=== PATIENT | male | born 1960 | race Two or more races ===

== ENCOUNTER 2025-04-01 10:22 | Inpatient (IN) | payer MEDICARE, MEDICAID ==
[~2025-04-01] VITALS: Ht 177.8 cm; Wt 96.0 kg
--- NOTE | 2025-04-01 10:37 | ED.PDOC ---
HPI (NEURO) HPI Comments This is a 64 year old male presenting to the ED with chief complaint of dizziness. Patient reports that he has been experiencing dizziness with associated nausea and imbalance since yesterday after having an echocardiogram and carotid US performed at his doctor's office. Patient relays that he currently has prostate cancer. Patient denies any SOB, chest pain, abdominal pain, vomiting, headache, or blurred vision. Time Seen by MD: 10:32 Primary Care Provider: WILBUR Tobin Notes: Nurses Notes, Medications, Allergies Information Source: Patient, Relative (Son) Mode of Arrival: Wheelchair Severity: Moderate Dizziness/Weakness Severity: Unable to do activities Timing: Days Duration: Since onset Prehospital treatment: None Onset: At rest Circumstances: Spontaneous Symptoms: Vertigo, Imbalance History of: CVA Past Medical History PAST MEDICAL HISTORY: Cancer (Prostate), CVA, DM, High Lipids, HTN, Thyroid Surgical History: Denies all surgeries Family History Family History: Reviewed,noncontributory to illness Social History Smoker: Non-Smoker Alcohol: Occasionally Drugs: Denies Drug Use Lives In: Home Constitutional: denies: chills, diaphoresis, fatigue, fever, malaise, sweats, weakness, others EENTM: denies: blurred vision, double vision, ear bleeding, ear discharge, ear drainage, ear pain, ear ringing, eye pain, eye redness, hearing loss, mouth pain, mouth swelling, nasal discharge, nose bleeding, nose congestion, nose pain , photophobia, tearing, throat pain, throat swelling, voice changes, others Respiratory: denies: cough, hemoptysis, orthopnea, SOB at rest, shortness of breath, SOB with excertion, stridor, wheezing, others Cardiovascular: denies: chest pain, dizzy spells, diaphoresis, Dyspnea on exertion, edema, irregular heart beat, left arm pain, lightheadedness, palpitations, PND, syncope, others Gastrointestinal: reports: nausea; denies: abdomen distended, abdominal pain, blood streaked bowels, constipated, diarrhea, dysphagia, difficulty swallowing, hematemesis, melena, poor appetite, poor fluid intake, rectal bleeding, rectal pain, vomiting, others Genitourinary: denies: burning, dysuria, flank pain, frequency, hematuria, incontinence, penile discharge, penile sore, pain, testicle pain, testicle swelling, urgency, others Neurological: reports: dizziness; denies: fainting, headache, left sided numbness, left sided weakness, numbness, paresthesia, pre-existing deficit, right sided numbness, right sided weakness, seizure, speech problems, tingling, tremors, weakness, others Musculoskeletal: denies: back pain, gout, joint pain, joint swelling, muscle pain, muscle stiffness, neck pain, others Integumetry: denies: bruises, change in color, change in hair/nails, dryness, laceration, lesions, lumps, rash, wounds, others Allergic/Immunocompromised: denies: Difficulty Healing, Frequent Infections, Hives, Itching, others Hematologic/Lymphatic: denies: anemia, blood clots, easy bleeding, easy bruising, swollen glands, others Endocrine: denies: excessive hunger, excessive sweating, excessive thirst, excessive urination, flushing, intolerance to cold, intolerance to heat, unexplained weight gain, unexplained weight loss, others Psychiatric: denies: anxiety, bipolar disorder, depression, hopeless, panic disorder, schizophrenia, sleepless, suicidal, others All Other Systems: Reviewed and Negative Physical Exam General Appearance: Moderate Distress HEENT: Normal ENT Inspection, Pharynx Normal, TMs Normal Neck: Full Range of Motion, Non-Tender, Normal, Normal Inspection Respiratory: Chest Non-Tender, Lungs Clear, No Accessory Muscle Use, No Res piratory Distress, Normal Breath Sounds Cardiovascular: No Edema, No JVD, No Murmur, No Gallop, Normal Peripheral Pulses, Regular Rate/Rhythm Breast Exam: Deferred Gastrointestinal: No Organomegaly, Non Tender, No Pulsatile Mass, Normal Bowel Sounds, Soft Genitalia: Deferred Pelvic: Deferred Rectal: Deferred Extremities: No calf tenderness, Normal capillary refill, Normal inspection, Normal range of motion, Non-tender, No pedal edema Musculoskeletal : Apperance: Normal Neurologic: sales strategy manager II-XII nml as Tested, Motor Weakness, Normal Affect, Normal Mood, No Sensory Deficits Cerebellar Function: Normal Reflexes: Normal Skin: Dry, Pallor, Warm Lymphatic: No Adenopathy EKG EKG : Pulse Rate (adult): 68 [place]: Normal Block: None Hypertrophy: None ST: Normal Was a procedure done? Was a procedure done?: No X-Ray, Labs, Meds, VS Vital Signs Date Time Temp Pulse Resp B/P (MAP) Pulse Ox O2 Delivery O2 Flow Rate FiO2 04/01/25 10:42 68 04/01/25 10:37 68 04/01/25 10:34 97.9 76 20 138/87 (104) 92 97.9 Lab Test 04/01/25 10:40 04/01/25 10:32 Range/Units White Blood Count 3.7 L 4.4-10.8 10^3/uL Red Blood Count 5.40 4.5-5.90 10^6/uL Hemoglobin 16.3 13.5-17.5 g/dL Hematocrit 47.9 41.0-53.0 % Mean Corpuscular Volume 88.8 80.0-100.0 fL Mean Corpuscular Hemoglobin 30.2 28.0-32.0 pg Mean Corpuscular Hemoglobin Concent 34.0 32.0-36.0 g/dL Red Cell Distribution Width 13.5 11.8-14.3 % Platelet Count 186 140-450 10^3/uL Mean Platelet Volume 8.9 6.9-10.8 fL Neutrophils (%) (Auto) 57.0 37.0-80.0 % Lymphocytes (%) (Auto) 34.8 10.0-50.0 % Monocytes (%) (Auto) 5.5 0.0-12.0 % Eosinophils (%) (Auto) 1.9 0.0-7.0 % Basophils (%) (Auto) 0.8 0.0-2.0 % Neutrophils # (Auto) 2.1 1.6-8.6 10 ^3/uL Lymphocytes # (Auto) 1.3 0.4-5.4 10 ^3/uL Monocytes # (Auto) 0.2 0-1.3 10 ^3/uL Eosinophils # (Auto) 0.1 0-0.8 10 ^3/uL Basophils # (Auto) 0 0-0.2 10 ^3/uL Nucleated Red Blood Cells 0.0 % Sodium Level 142 136-145 mmol/L Potassium Level 4.1 3.5-5.1 mmol/L Chloride Level 109 H 98-107 mmol/L Carbon Dioxide Level 26 20-31 mmol/L Anion Gap 7 5-15 Blood Urea Nitrogen 10 9-23 mg/dL Creatinine 0.96 0.700-1.30 mg/dL Glomerular Filtration Rate Calc 88 >90 mL/min BUN/Creatinine Ratio 10.4 10.0-20.0 Serum Glucose 110 H 74-106 mg/dL Lactic Acid Level 1.4 0.4-2.0 mmol/L Calcium Level 10.3 8.7-10.4 mg/dL POC Glucose 100 70-106 mg/dl Current Medications Medications (Trade) Dose Ordered Sig/Galo Route Start Time Stop Time Status Last Admin Sodium Chloride 1,000 ml @ 150 mls/hr Q6H40M ONCE IV 04/01/25 10:45 04/01/25 17:24 04/01/25 11:27 IV Hep-Lock was established The patient is being given normal saline as a bolus The patient's CBC and chemistry panel are within normal limits The patient had a CAT scan of the head done which shows: No sign of any abnormalities The lactic acid level is within normal limits The patient continues to be symptomatic The patient is being admitted at this time Images Reviewed?: Images reviewed and evaluated by me Time of 1ST Reevaluation: 11:52 Reevaluation 1ST: Unchanged Patient Education/Counseling: Diagnosis, Treatment, Prognosis Family Education/Counseling: Diagnosis, Treatment, Prognosis Additional Information Reviewed patient's previous visit(s): 05/21/13 for weakness The following tests were ordered, and results were reviewed by me: CBC, BMP, UA, Lactic acid, Blood culture, COVID, CT Head, EKG Additional information was gathered from interviewing the following independent historian: Son I reviewed and agreed with the following test results read by other provider: None I discussed treatments and results with medical personnel and: PATIENT and son Comprehensive systems review obtained and negative except for what is stated in the HPI. Departure 1 Departure Time of Disposition: 11:52 Impression: Primary Impression: Generalized weakness Additional Impression: Autonomic dysfunction Disposition: 09 ADMITTED INPATIENT Admit to: Tele Condition: Fair Critical Care Note Critical Care Time?: Yes (55 min-critical care time only) Stability Stability form required: Yes Unstable for transfer: Telemetry monitoring (Telemetry monitoring required), ED Physician Assesment (Clinical assesment) Heart Score Heart Score: Heart Score Response (Comments) Value History N/A 0 EKG N/A 0 Age N/A 0 Risk Factors N/A 0 Troponin N/A 0 Total 0 I personally scribed for SAV MEZA MD ([email or web address]) on 04/01/25 at 10:37. Electronically submitted by Braden Samayoa ([email or web address]). I personally scribed for SAV MEZA MD ([email or web address]) on 04/01/25 at 10:42. Electronically submitted by Braden Samayoa ([email or web address]). SAV MEZA MD Apr 01, 2025 10:37
[2025-04-01 10:59] LABS: Basophils # (auto) 0 10 ^3/uL (0-0.2); Basophils % (auto) 0.8 % (0.0-2.0); Eosinophils # (auto) 0.1 10 ^3/uL (0-0.8); Eosinophils % (auto) 1.9 % (0.0-7.0); Hematocrit 47.9 % (41.0-53.0); Hemoglobin 16.3 g/dL (13.5-17.5); Lymphocytes # (auto) 1.3 10 ^3/uL (0.4-5.4); Lymphocytes % (auto) 34.8 % (10.0-50.0); Mean Corpuscular Hemoglobin 30.2 pg (28.0-32.0); Mean Corpuscular Volume 88.8 fL (80.0-100.0); Monocytes # (auto) 0.2 10 ^3/uL (0-1.3); Monocytes % (auto) 5.5 % (0.0-12.0); Neutrophils # (auto) 2.1 10 ^3/uL (1.6-8.6); Platelet Count (auto) 186 10^3/uL (140-450); Red Cell Distribution Width 13.5 % (11.8-14.3); White Blood Cell 3.7 10^3/uL (4.4-10.8)
[2025-04-01 11:08] LABS: Potassium 4.1 mmol/L (3.5-5.1); Sodium 142 mmol/L (136-145)
[2025-04-01 11:09] LABS: Anion Gap 7 (5-15); Carbon Dioxide 26 mmol/L (20-31)
[2025-04-01 11:10] LABS: Calcium 10.3 mg/dL (8.7-10.4); Chloride 109 mmol/L (98-107)
--- NOTE | 2025-04-01 11:13 | DVH ---
CT HEAD WITHOUT CONTRAST Indication: aloc EXAM DATE: 04/01/2025 10:40 AM COMPARISON: None TECHNIQUE: CT of the head without intravenous contrast. RADIATION DOSE: CTDIvol: 62.82 mGy, DLP: 1237.85 mGy*cm FINDINGS: There is no intracranial hemorrhage. There is no extra-axial fluid, mass, mass effect or midline shif t. The ventricles are midline and normal in size. Basilar cisterns are patent. There are mild periven tricular and subcortical white matter chronic microvascular ischemic changes. Mastoids well pneumatized. Mucosal thickening bilateral maxillary sinuses.. Imaged portion of the orb its are unremarkable. IMPRESSION: No intracranial hemorrhage or mass effect. Mild chronic microvascular ischemic changes.
[2025-04-01 11:15] LABS: BUN/Creatinine Ratio 10.4 (10.0-20.0); Blood Urea Nitrogen 10 mg/dL (9-23)
[2025-04-01 11:16] LABS: Glucose 110 mg/dL (74-106)
[2025-04-01] MEDS: SODIUM CHLORIDE 0.9% 1,000 ML IV ONE (11:27)
--- NOTE | 2025-04-01 13:21 | DVHHP2 ---
History of Present Illness Reason for Visit: Dizziness History of Present Illness 64-year-old male past medical history prostate cancer had treatment in the past CVA diabetes hyperlipidemia hypertension hypothyroid no surgical history chief complaint patient states that he went to to [facility] any had it scheduled carotid ultrasound he stated that the when the carotid ultrasound of the left neck was being completed he was having some dizziness and neck pain and then he started to get up and lose his balance and he started with nausea and vomiting. Patient states he was doing fine until the ultrasound was completed of the left carotid he said he was able to get home but he continued with nausea and vomiting dizziness that brought him in today and he stated it was seen visual changes he states that his gait is unsteady when he is walking so he is currently in his wheelchair he currently denies any chest pain no shortness with the breath when evaluating patient's labs and imaging from the ED normal saline was given CBC was unremarkable CMP unremarkable lactate was 1.[address] scan of the head shows microvascular ischemic changes. With these findings we will admit and ask for Neurology for evaluation Past Medical History See HPI above Past Surgical History See HPI above Family History Reviewed, non-contributory to the management of this case. Past Social History The patient lives at home, denies smoking, alcohol or illicit drugs abuse. Review of Systems Constitutional: No: Fever, Chills, Sweats, Weakness, Malaise, Other Eyes: No: Pain, Vision change, Conjunctivae inflammation, Eyelid inflammation, Other, Redness ENT: No: Ear pain, Ear discharge, Nose pain, Nose discharge, Nose congestion, Mouth pain, Mouth swelling, Throat pain, Throat swelling, Other Respiratory: No: Cough, Dry, Shortness of breath, SOB with excertion, Wheezing, Hemoptysis, Pleuritic Pain, Sputum, Wheezing, Other Cardiovascular: No: Chest Pain, Palpitations, Orthopnea, Paroxysmal Noc. Dyspnea, Edema, Lt Headedness, Other Gastrointestinal: Nausea, Vomiting Genitourinary: No Dysuria, No Frequency, No Incontinence, No Hematuria, No Retention, No Other Musculoskeletal: No: other, neck pain, shoulder pain, arm pain, back pain, hand pain, leg pain, foot pain Skin: No: Rash, Lesions, Jaundice, Bruising, Other Neurological: Weakness, Other (Dizziness) Allergies: Coded Allergies: NO KNOWN ALLERGIES (Unverified , 07/23/10) Exam Vital Signs Vital Signs Date Time Temp Pulse Resp B/P (MAP) Pulse Ox O2 Delivery O2 Flow Rate FiO2 04/01/25 10:42 68 04/01/25 10:34 97.9 20 138/87 (104) 92 97.9 General Appearance: Alert, Oriented X3, Cooperative, No acute distress HEENT: Atraumatic, PERRLA, EOMI, Mucous membr. moist/pink Respiratory: Clear to auscultation, Normal air movement Cardiovascular: Regular rate, Normal S1, Normal S2, No murmurs Abdominal: Normal bowel sounds, Soft, No tenderness, No hepatospenomegaly, No masses Extremities: No clubbing, No cyanosis, No edema, Normal pulses Skin: No rashes, No breakdown, No significant lesion Neuro: Other (Limited exam neuro nonfocal) Psych/Mental Status: Mental status NL, Mood NL Labs/Xrays CT scan of the brain shows microvascular ischemic changes I reviewed labs, imaging CT scan abdomen pelvis, EKG and all diagnostic studies on this patient from ED records and the medical chart Labs Test 04/01/25 10:40 04/01/25 10:32 Range/Units White Blood Count 3.7 L 4.4-10.8 10^3/uL Red Blood Count 5.40 4.5-5.90 10^6/uL Hemoglobin 16.3 13.5-17.5 g/dL Hematocrit 47.9 41.0-53.0 % Mean Corpuscular Volume 88.8 80.0-100.0 fL Mean Corpuscular Hemoglobin 30.2 28.0-32.0 pg Mean Corpuscular Hemoglobin Concent 34.0 32.0-36.0 g/dL Red Cell Distribution Width 13.5 11.8-14.3 % Platelet Count 186 140-450 10^3/uL Mean Platelet Volume 8.9 6.9-10.8 fL Neutrophils (%) (Auto) 57.0 37.0-80.0 % Lymphocytes (%) (Auto) 34.8 10.0-50.0 % Monocytes (%) (Auto) 5.5 0.0-12.0 % Eosinophils (%) (Auto) 1.9 0.0-7.0 % Basophils (%) (Auto) 0.8 0.0-2.0 % Neutrophils # (Auto) 2.1 1.6-8.6 10 ^3/uL Lymphocytes # (Auto) 1.3 0.4-5.4 10 ^3/uL Monocytes # (Auto) 0.2 0-1.3 10 ^3/uL Eosinophils # (Auto) 0.1 0-0.8 10 ^3/uL Basophils # (Auto) 0 0-0.2 10 ^3/uL Nucleated Red Blood Cells 0.0 % Sodium Level 142 136-145 mmol/L Potassium Level 4.1 3.5-5.1 mmol/L Chloride Level 109 H 98-107 mmol/L Carbon Dioxide Level 26 20-31 mmol/L Anion Gap 7 5-15 Blood Urea Nitrogen 10 9-23 mg/dL Creatinine 0.96 0.700-1.30 mg/dL Glomerular Filtration Rate Calc 88 >90 mL/min BUN/Creatinine Ratio 10.4 10.0-20.0 Serum Glucose 110 H 74-106 mg/dL Lactic Acid Level 1.4 0.4-2.0 mmol/L Calcium Level 10.3 8.7-10.4 mg/dL POC Glucose 100 70-106 mg/dl Assessment/Plan Assessment/Plan acute dizziness with gait disturbance ct scan brain shows microvascular ischemic changes ordered Neurology consult Consider MRI of the brain Stroke protocol and precautions PT OT eval and treat npo nursing to do bedside swallow testing if fail order swallow evaluation cont asa atorvastin cont permissive htn can provide hydralazine prn elevated blood pressure ordered neuro checks q4h fall precautions Bedrest ordered Carotid Doppler study ordered Echo fu results cardiac function consider cards if abnormal results chronic problems cva dm ISS hld htn hypothyroidism prostrate cancer fen/ppx npo until pass swallow evaluation hl scd no gi ppx since no hx of gerds or gi bleed dipso plan admit to tele neuro consult Plan discussed with: Patient Date of Service: Apr 01, 2025 Billing Provider: LINCOLN LIM DNP Common Visit Codes: [id number] INP/OBS CARE (HIGH) LINCOLN LIM DNP Apr 01, 2025 13:21
[2025-04-01] MEDS ORDERED: DEXTROSE (50%) 50ML SYRG IV PRN (14:45)
[2025-04-01] MEDS ORDERED: NITROGLYCERIN 0.4 MG SL TAB SL PRN (14:45)
[2025-04-01 15:58] LABS: Urine Bacteria None Seen /hpf (None Seen)
[2025-04-01 16:22] LABS: Urine Blood Negative /uL (Negative); Urine Clarity Clear (Clear); Urine Color Light-Yellow (Yellow); Urine Mucus FEW (None Seen); Urine Protein, UAD Negative (Negative); Urine Specific Gravity 1.022 (1.001-1.035); Urine Squamous Epithelial Cell FEW /hpf (<5); Urine Urobilinogen Normal (Negative); Urine WBC < 1 /HPF (0-3)
[2025-04-01] MEDS ORDERED: ACCU-CHEK COMFORT CURVE STRIP VI SCH (17:00)
[2025-04-01 17:49] VITALS: PULSE 74; RESP 16; O2SAT 32
[2025-04-01] MEDS: ACCU-CHEK COMFORT CURVE STRIP VI SCH (18:00)
[2025-04-01] MEDS: InsuLIN REG 1unit/0.01ml Soln (100units/ml) SC SCH (18:00)
[2025-04-01 18:25] LABS: COVID19 ANTIGEN SOFIA FIA NEGATIVE (NEGATIVE)
[2025-04-01 20:00] VITALS: PULSE 55; PULSE 69; RESP 16; O2SAT 96
[2025-04-01 21:00] VITALS: BP 168/99; PULSE 69; RESP 16; TEMP 98.7; O2SAT 96
[2025-04-01] MEDS: ATORVASTATIN 20 MG TAB PO SCH (21:40)
[2025-04-02] VITALS (8 sets, daily range): BP systolic 117–168; BP diastolic 77–100; PULSE 62–94; RESP 14–20; TEMP 96–98.1; O2SAT 96–99
[2025-04-02] MEDS: hydrALAZINE HCL 20 MG/ML VL IV PRN (02:40)
[2025-04-02] MEDS ORDERED: ATOR-47 PO (09:10)
[2025-04-02] MEDS: ASPirin 81 mg TAB PO SCH (09:12)
--- NOTE | 2025-04-02 11:02 | DVHPN2 ---
Subjective The patient is seen and examined at bedside. No complaint today. Dizziness improved. Reviewed: Care Plan, H&P, Labs, Medications, Previous Orders, Radiology Changes from previous H/P or p: No Changes Eyes: No Pain, No Vision change, No Conjunctivae inflammation, No Eyelid inflammation, No Other, No Redness ENT: No Ear pain, No Ear discharge, No Nose pain, No Nose discharge, No Nose congestion, No Mouth pain, No Mouth swelling, No Throat pain, No Throat swelling, No Other Cardiovascular: No Chest Pain, No Palpitations, No Orthopnea, No Paroxysmal Noc. Dyspnea, No Edema, No Lt Headedness, No Other Respiratory: No Cough, No Dry, No Shortness of breath, No SOB with excertion, No Wheezing, No Hemoptysis, No Pleuritic Pain, No Sputum, No Other Gastrointestinal: Nausea, Vomiting Genitourinary: No Dysuria, No Frequency, No Incontinence, No Hematuria, No Retention, No Other Musculoskeletal: No other, No neck pain, No shoulder pain, No arm pain, No back pain, No hand pain, No leg pain, No foot pain Skin: No Rash, No Lesions, No Jaundice, No Bruising, No Other Objective Vitals Vital Signs Date Time Temp Pulse Resp B/P (MAP) Pulse Ox O2 Delivery O2 Flow Rate FiO2 04/02/25 09:12 97.5 77 19 141/82 (101) 96 97.5 04/02/25 08:00 Nasal Cannula* 2 28 Intake/Output Intake and Output 04/02/25 07:00 Intake Total 540 ml Balance 540 ml Intake Oral 540 ml General Appearance: Alert, Oriented X3, Cooperative, No acute distress HEENT: Atraumatic, PERRLA, EOMI, Mucous membr. moist/pink Neck: Supple Lungs: Clear to auscultation, Normal air movement Cardiovascular: Regular rate, Normal S2, No murmurs, Gallops, Rubs Abdomen: Normal bowel sounds, Soft, No tenderness Neuro: Cranial nerves 3-12 NL Psych/Mental Status: Mental status NL Medications Current Medications Medications Dose Ordered Sig/Galo Route Start Time Stop Time Status Last Admin Dose Admin Atorvastatin Calcium 20 mg HS PO 04/01/25 22:00 04/01/25 21:40 20 MG Aspirin 81 mg DAILY PO 04/02/25 10:00 04/02/25 09:12 81 MG Insulin Human Regular Q6HR SC 04/01/25 18:00 04/02/25 00:34 2 UNITS Dextrose 50 ml UD PRN IV 04/01/25 14:45 Nitroglycerin 0.4 mg Q5MINP PRN SL 04/01/25 14:45 Diagnostic Test (Pha) 1 strip Q6HR 04/01/25 18:00 04/02/25 05:41 1 STRIP Hydralazine HCl 10 mg Q6HP PRN IV 04/01/25 23:15 04/02/25 02:40 10 MG Laboratory Results Laboratory Tests 04/01/25 10:40 Urinalysis Test 04/01/25 15:32 Urine Color Light-yellow (Yellow) Urine Clarity Clear (Clear) Urine pH 6.0 (5.0-9.0) Urine Specific [place] 1.022 (1.001-1.035) Urine Protein Negative (Negative) Urine Ketones Negative (Negative) Urine Blood Negative /uL (Negative) Urine Nitrite Negative (Negative) Urine Bilirubin Negative (Negative) Urine Urobilinogen Normal mg/dL (Negative) Urine Leukocyte Esterase Negative /uL (Negative) Urine RBC 1 /hpf (0 - 3) Urine Microscopic WBC < 1 /HPF (0-3) Urine Squamous Epithelial Cells Few /hpf (<5) Urine Bacteria None seen /hpf (None Seen) Urine Mucus Few (None Seen) Urine Glucose Normal mg/dL (Normal) Microbiology Microbiology Date/Time Source Procedure Growth Status 04/01/25 10:40 Blood Blood Culture - Preliminary NO GROWTH AFTER 24 HOURS OF INCUBATION. Resulted Labs and/or images reviewed: Labs reviewed by me Assessment/Plan Assessment/Plan Acute dizziness with gait disturbance History of cva Diabetes type 2 Hyperlipidemia Hypertension Hypothyroidism Prostrate cancer Continuing current management. Waiting for MRI to be done. Continuing with sliding scale insulin. Continuing hypertensive medication in hyperlipidemia medication. Discharge planning. Encouraged the patient to be out of bed and ambulate with physical therapy. This medical document was created using an electronic medical record system with [employer]rency direct computerized dictation system. Although this document has been carefully reviewed, there may still be some phonetic and typographical errors. These areas are purely typographical due to imperfections of the software programs, and do not reflect any compromise in the patient's medical care. Plan discussed with: Patient Date of Service: Apr 02, 2025 Billing Provider: TRACY VAUGHN MD Common Visit Codes: [id number] INP/OBS CARE(HIGH) TRACY VAUGHN MD Apr 02, 2025 11:02
[2025-04-03] VITALS (8 sets, daily range): BP systolic 120–178; BP diastolic 81–101; PULSE 56–79; RESP 14–19; TEMP 97.8–97.9; O2SAT 95–97
--- NOTE | 2025-04-03 07:16 | BSKYNEURO ---
[facility] Note # Demographics Consult Type: General Neurology Patient Location: Inpatient First Name: Sunny Last Name: Emmanuel Date of : 1960 Age: 64 Gender: Male Facility: [facility] Time of Initial Page (): 04/03/2025 06:47 Time of Return Call (): 04/03/2025 06:47 # HPI Chief Complaint: - dizziness History: 64M with HTN, prior stroke, DM presented with dizziness. Had carotid ultrasound on 04/01, and was subsequently dizzy with nausea/vomiting. Was hypertensive to the 160s, got BP meds and felt better. CT head showed microvascular ischemic changes. Walking without assistance with normal strength. # Scores Time of exam and NIHSS (): 04/03/2025 07:03 Level of Consciousness 1a: [0] = Alert; keenly responsive LOC Questions 1b: [0] = Answers both questions correctly LOC Commands 1c: [0] = Performs both tasks correctly Best Gaze 2: [0] = Normal Visual 3: [0] = No visual loss Facial Palsy 4: [0] = Normal symmetrical movements Motor Arm Left 5a: [0] = No drift Motor Arm Right 5b: [0] = No drift Motor Leg Left 6a: [0] = No drift Motor Leg Right 6b: [0] = No drift Limb Ataxia 7: [0] = Absent Sensory 8: [0] = Normal Best Language 9: [0] = No aphasia Dysarthria 10: [0] = Normal Extinction and Inattention 11: [0] = No abnormality NIHSS Total: 0 # Assessment Impression: Hypertensive urgency # Plan Thrombolytic/Intervention: NOT IV Thrombolysis or IA Intervention candidate Thrombolytic/Intraarterial Exclusion: - IV thrombolytic and IA intervention considered but not recommended as this patient's symptoms are not clinically consistent with an assumed diagnosis of stroke Other: - If patient has any neurological deterioration please call me back immediately Additional Recommendations: Patient with normal neurologic exam, resolution of symptoms with BP control; does not need further in-patient evaluation and is safe for discharge home from neurology perspective Disposition: discharge # Logistics Attestation of consult completion: The patient is located at: [facility]. Facility staff participated in the visit. I performed this telemedic ine visit from my offsite office utilizing interactive 2 way audio and visual telecommunication technology. Consent: Verbal consent was obtained from the patient and/or family for this encounter. Total time spent in telemedicine encounter: I spent 10 minutes reviewing clinical data and/or imaging, obtaining history, examining the patient, communicating with the onsite care team, and in preparation of this report. Electronically signed at 04/03/2025 07:16 ([place] Time) by Richard Roque MD Yes RICHARD ROQUE MD Apr 03, 2025 07:16
--- NOTE | 2025-04-03 15:15 | DVHDS2 ---
Discharge Summary Date of Admission Apr 01, 2025 at 15:39 Date of Discharge: Apr 03, 2025 Admitting Diagnosis Acute dizziness with gait disturbance History of cva Diabetes type 2 Hyperlipidemia Hypertension Hypothyroidism Prostrate cancer Labs/Diagnostic Data: Laboratory Results Test 04/03/25 11:43 04/01/25 17:55 04/01/25 17:00 04/01/25 15:32 POC Glucose 103 mg/dl (70-106) SARS-CoV-2 Antigen (Rapid) Negative (NEGATIVE) Troponin I High Sensitivity 11 ng/L (</=54) Urine Color Light-yellow (Yellow) Urine Clarity Clear (Clear) Urine pH 6.0 (5.0-9.0) Urine Specific [place] 1.022 (1.001-1.035) Urine Protein Negative (Negative) Urine Ketones Negative (Negative) Urine Blood Negative /uL (Negative) Urine Nitrite Negative (Negative) Urine Bilirubin Negative (Negative) Urine Urobilinogen Normal mg/dL (Negative) Urine Leukocyte Esterase Negative /uL (Negative) Urine RBC 1 /hpf (0 - 3) Urine Microscopic WBC < 1 /HPF (0-3) Urine Squamous Epithelial Cells Few /hpf (<5) Urine Bacteria None seen /hpf (None Seen) Urine Mucus Few (None Seen) Urine Glucose Normal mg/dL (Normal) Test 04/01/25 10:40 White Blood Count 3.7 10^3/uL (4.4-10.8) Red Blood Count 5.40 10^6/uL (4.5-5.90) Hemoglobin 16.3 g/dL (13.5-17.5) Hematocrit 47.9 % (41.0-53.0) Mean Corpuscular Volume 88.8 fL (80.0-100.0) Mean Corpuscular Hemoglobin 30.2 pg (28.0-32.0) Mean Corpuscular Hemoglobin Concent 34.0 g/dL (32.0-36.0) Red Cell Distribution Width 13.5 % (11.8-14.3) Platelet Count 186 10^3/uL (140-450) Mean Platelet Volume 8.9 fL (6.9-10.8) Neutrophils (%) (Auto) 57.0 % (37.0-80.0) Lymphocytes (%) (Auto) 34.8 % (10.0-50.0) Monocytes (%) (Auto) 5.5 % (0.0-12.0) Eosinophils (%) (Auto) 1.9 % (0.0-7.0) Basophils (%) (Auto) 0.8 % (0.0-2.0) Neutrophils # (Auto) 2.1 10 ^3/uL (1.6-8.6) Lymphocytes # (Auto) 1.3 10 ^3/uL (0.4-5.4) Monocytes # (Auto) 0.2 10 ^3/uL (0-1.3) Eosinophils # (Auto) 0.1 10 ^3/uL (0-0.8) Basophils # (Auto) 0 10 ^3/uL (0-0.2) Nucleated Red Blood Cells 0.0 % Sodium Level 142 mmol/L (136-145) Potassium Level 4.1 mmol/L (3.5-5.1) Chloride Level 109 mmol/L (98-107) Carbon Dioxide Level 26 mmol/L (20-31) Anion Gap 7 (5-15) Blood Urea Nitrogen 10 mg/dL (9-23) Creatinine 0.96 mg/dL (0.700-1.30) Glomerular Filtration Rate Calc 88 mL/min (>90) BUN/Creatinine Ratio 10.4 (10.0-20.0) Serum Glucose 110 mg/dL (74-106) Lactic Acid Level 1.4 mmol/L (0.4-2.0) Calcium Level 10.3 mg/dL (8.7-10.4) Magnesium Level 2.1 mg/dL (1.6-2.6) Thyroid Stimulating Hormone (TSH) 1.21 uIU/mL (0.55-4.78) Other Laboratory Tests 04/01/25 10:40 Brief Hx & Hospital Course: This is a 64 years old male with past medical history of prostate cancer, CVA, diabetes, hyperlipidemia, hypertension, hypothyroidism come to emergency department because of dizziness. According to the patient he was in hospital in [place]. The patient has a carotid ultrasound done. He think that after the procedure done he become dizzy and had neck pain. He claimed that the ultrasound probe cause that problem. He started having nausea or vomiting. So he decided to come to hospital for further evaluation. CT scan of the head showed microvascular ischemic change. Patient is supposed to have MRI however neurologist evaluated the patient . He showed no symptom of CVA and no need for MRI. Today the patient denied any dizziness. He is able to walk without unstable gait So I am going to discharge the patient home today. Advised the patient to follow up with primary care physician 1-2 weeks. Activity as tolerated. Diet per home diet. Recommend low-salt low-cholesterol carb controlled diet. Physical exam: HEENT: Normocephalic atraumatic pupils equal react to light and accommodation. Extraocular muscles intact, conjunctiva pink, oropharynx moist, no thrush, no exudate. Lymphatic: No lymphadenopathy Cardiovascular exam: S1, S2 was heard. No murmurs, rubs, gallops Lung: Clear on auscultation bilaterally, no wheeze, rale, rhonchi. GI: Abdominal soft, nondistended, nontenderness, positive bowel sounds. Extremity: No crepitus, cyanosis, edema. Pedal pulses present bilateral. Full range of motion. Skin: Normal turgor, no rash. Psych: Alert, oriented x3. Neurology: No focal deficits, cranial nerve II to XII grossly intact. This medical document was created using an electronic medical record system with [employer] direct computerized dictation system. Although this document has been carefully reviewed, there may still be some phonetic and typographical errors. These areas are purely typographical due to imperfections of the software programs, and do not reflect any compromise in the patient's medical care. Condition at Discharge: Stable Final Diagnosis/Problems List Acute dizziness with gait disturbance , ruled out acute CVA History of cva Diabetes type 2 Hyperlipidemia Hypertension Hypothyroidism Prostrate cancer Discharge Disposition: Home Discharge Instruct/Medications Diet: Cardiac 2g Na,low cholest Activity: No Restrictions, As Tolerated Activity comment: WEAR COMPRESSION STOCKS Follow Up/Referral: PCP 1-2 WEEKS Medications: RESUME HOME MEDS Discharge Statement: "Patient was advised to return to the ER or call 911 if any headaches, dizziness, shortness of breath, chest pain, abdominal pain, bleeding, fevers, or worsening of medical condition. Patient was counseled about treatment plan, medications, possible side effects, patientverbalized understanding. All questions were answered to the best of my ability. This discharge took greater then 30 minutes in planning, reviewing documentation, counseling the patient, and discussing with other team members." ASSESSMENT ASSESSMENT Assessment DIZZINESS Date of Service: Apr 03, 2025 Billing Provider: TRACY VAUGHN MD Common Visit Codes: 77261-ERR/OBS DISCH DAY >30min TRACY VAUGHN MD Apr 03, 2025 15:15
--- NOTE | 2025-04-04 01:22 | DVHSR ---
APPROVED REPORT EXAM: Two-dimensional and M-mode echocardiogram with Doppler and color Doppler. Blood Pressure: 124/84 mmHg INDICATION Eval for Caradiac Function RISK FACTORS Height: 5' 10", Weight: 205 DIMENSIONS LVDd5.8 (3.8-5.7cm)LA (2D)3.7 (1.9-4.0cm)Aortic Root (2.0-3.7cm) LVDs4.1 (2.5-4.0cm)LA (MM) (1.9-4.0cm)Aortic Cusp Exc (1.5-2.0cm) EF (%) 55.0 (55-70%)Rt. Atrium3.8 (1.9-4.0cm)Asc. Aorta3.4 cm IVSd1.0 (0.7-1.1cm)RV (D) (1.8-2.4cm) PWd0.9 (0.7-1.1cm) Mitral Valve MitralMitral Stenosis E wave0.58m/sMV Mean GR.mmHg A wave0.98m/sMV Peak GR.mmHg E/A ratio0.62D MVAcm2 DECEL [id number] 1/2 [place] Aortic Valve Aortic ValveAortic Stenosis V10.91m/Rachel Mean GR.3mmHg V21.29m/Rachel Peak GR.7mmHg LVOT Diameter2.1 (1.8-2.4cm)Doppler AVA2.44cm2 Pulmonic Valve V20.93m/s Conclusion NORMAL LV EF AND IS 65% NORMAL RV FUNCTION NORMAL VALVES NO EFFUSION
--- NOTE | 2025-04-05 14:42 | ECG ---
[facility] Test Date: 2025-04-01 Test Time: 10:37:20 Pat Name: TERRY ANDRES Department: ER Room: 0298T Gender: M Applications Engineer: FARZANA : [id number] Requested By: SAV MEZA Order Number: [id number] Reading MD: Measurements Intervals [place] Rate: 68 P: 38 AL: 175 QRS: 10 QRSD: 103 T: 62 QT: 425 QTc: 453 Interpretive Statements Sinus rhythm Low voltage, precordial leads RSR' in V1 or V2, right VCD or RVH Please click the below link to view image of tracing.
== END 2025-04-03 16:48 | disposition home or self-care (01) | DRG 305 ==
LOC: ER 10:22 → OVERFLOW 15:39 → EDUNIT# 15:39 → OVERFLOW 16:27 → TELE-WESTW 18:18
PROVIDERS: ADMIT Internal Medicine; ATTEND Internal Medicine
DX: I16.0 Hypertensive urgency (principal); E11.9 Type 2 diabetes mellitus without complications; Z20.822 Contact with and (suspected) exposure to COVID-19; E03.9 Hypothyroidism, unspecified; E78.5 Hyperlipidemia, unspecified; G90.89 Other disorders of autonomic nervous system; R26.9 Unspecified abnormalities of gait and mobility; Z85.46 Personal history of malignant neoplasm of prostate; Z86.73 Personal history of transient ischemic attack (TIA), and cerebral infarction without residual deficits; Z79.899 Other long term (current) drug therapy
CPT/HCPCS: 36415; 70450; 80048; 81001; 82962; 83605; 83735; 84443; 84484; 85025; 87040; 87426; 93005; 93306; 96360; 97110; 97116; 97163; 97530; 99291; G0378